=== PATIENT | male | born 2000 | race Caucasian/White ===

== ENCOUNTER 2022-04-05 19:29 | Inpatient (IN) | payer MEDICAID, OTHER ==
[~2022-04-05] VITALS: Ht 185.4 cm; Wt 104.6 kg
[2022-04-05] MEDS ORDERED: ZOLPIDEM TARTRATE 10 MG TABLET PO PRN (22:45)
[2022-04-05] MEDS ORDERED: HALOPERIDOL 5 MG TABLET PO PRN (22:45)
[2022-04-05 22:53] LABS: BASOPHILS % (AUTO) 1.1 % (0.0-2.0); EOSINOPHILS % (AUTO) 3.2 % (1.0-6.0); HEMATOCRIT 46.6 % (41-53); HEMOGLOBIN 15.6 g/dL (13.5-17.5); LYMPHOCYTES # (AUTO) 3.4 K/uL (1.0-4.8); LYMPHOCYTES % (AUTO) 42.9 % (22.0-44.0); MEAN CORPUSCULAR HGB CONC 33.5 G/dL (31.0-37.0); MEAN CORPUSCULAR VOLUME 84 fL (80-100); MONOCYTES # (AUTO) 0.5 K/uL (0.1-1.0); MONOCYTES % (AUTO) 6.1 % (2.0-9.0); NEUTROPHILS # (AUTO) 3.7 K/uL (1.8-7.7); NEUTROPHILS % (AUTO) 46.7 % (40.0-70.0); PLATELET COUNT (AUTO) 216 K/uL (150-450); RED BLOOD CELL COUNT(AUTO) 5.57 MIL/uL (4.50-5.90); RED CELL DISTRIBUTION WIDTH 15.5 % (11.5-14.5)
[2022-04-05 23:00] LABS: ANION GAP 9 mmol/L (8-16); CALCIUM, TOTAL 9.7 mg/dL (8.8-10.5); CARBON DIOXIDE 28 mmol/L (22-29); CHLORIDE 105 mmol/L (98-107); CREATININE 0.67 mg/dL (0.60-1.30); GLOMERULAR FILTR. RATE CALC > 60 mL/min (>60); GLUCOSE,RANDOM 113 mg/dL (70-110); POTASSIUM 3.5 mmol/L (3.5-5.1); SODIUM SERUM 142 mmol/L (136-145); UREA NITROGEN, BLOOD 6 mg/dL (7-18)
[2022-04-05 23:06] LABS: ALANINE AMINOTRANSFERASE 38 U/L (12-78); ALBUMIN 3.9 g/dL (3.4-5.0); ALKALINE PHOSPHATASE 64 U/L (46-116); ASPARTATE AMINOTRANSFERASE 23 U/L (15-37); BILIRUBIN,TOTAL 0.5 mg/dL (0.1-1.0); TOTAL PROTEIN, SERUM 7.3 g/dL (6.4-8.2)
[2022-04-05 23:21] LABS: COVID AG,FIA SOURCE NASAL SWAB
[2022-04-06] MEDS ORDERED: LOPERAMIDE HCL 2 MG CAPSULE PO PRN (06:45)
[2022-04-06] MEDS ORDERED: MAG HYDROX/AL HYDROX/SIMETH ES 30 ML SUSPENSION UDCUP PO PRN (06:45)
[2022-04-06] MEDS ORDERED: MAGNESIUM HYDROXIDE SUSPENSION 30 ML UDCUP PO PRN (06:45)
[2022-04-06] MEDS ORDERED: PETROLATUM,WHITE 28 GM JELLY TP PRN (06:45)
[2022-04-06] MEDS ORDERED: ALBUTEROL SULFATE HFA 90 MCG/PUFF 8 GM INHALER IH PRN (06:45)
[2022-04-06] MEDS ORDERED: DOCUSATE SODIUM 100 MG CAPSULE PO PRN (06:45)
[2022-04-06] MEDS ORDERED: ONDANSETRON HCL 4 MG TABLET PO PRN (06:45)
[2022-04-06] MEDS ORDERED: GuaiFENesin/D-METHORPHAN [SUGAR-FREE] 200-20MG/10 ML SYRUP UDCUP PO PRN (06:45)
[2022-04-06] MEDS ORDERED: ACETAMINOPHEN 325 MG TABLET PO PRN (06:45)
[2022-04-06] MEDS ORDERED: IBUPROFEN 400 MG TABLET PO PRN (06:45)
[2022-04-06] MEDS ORDERED: CloNIDine HCL 0.1 MG TABLET PO PRN (06:45)
[2022-04-06] MEDS ORDERED: NICOTINE 14 MG/24 HOUR PATCH TD PRN (06:45)
[2022-04-06 08:05] VITALS: BP 128/74
[2022-04-06 20:01] VITALS: BP 142/75
[2022-04-06] MEDS: DIVALPROEX SODIUM 500 MG DR TABLET PO SCH (20:04)
[2022-04-06] MEDS: RisperiDONE 1 MG TABLET PO SCH (20:04)
[2022-04-07 08:00] VITALS: BP 119/66
[2022-04-07] MEDS: DIVALPROEX SODIUM 500 MG DR TABLET PO SCH ×2 (08:19→20:18)
[2022-04-07] MEDS: ESCITALOPRAM OXALATE 10 MG TABLET PO SCH (08:19)
[2022-04-07] MEDS: RisperiDONE 1 MG TABLET PO SCH ×2 (08:19→20:18)
[2022-04-07] MEDS: LORazepam 2 MG TABLET PO PRN (08:19)
[2022-04-07 20:03] VITALS: BP 116/78
[2022-04-08] MEDS: TESTOSTERONE 1% 50 MG-5 GM GEL PACKET TD SCH (12:18)
[2022-04-08] MEDS: RisperiDONE 1 MG TABLET PO SCH ×2 (12:18→20:30)
[2022-04-08] MEDS: DIVALPROEX SODIUM 500 MG DR TABLET PO SCH ×2 (12:18→20:30)
[2022-04-08] MEDS: ESCITALOPRAM OXALATE 10 MG TABLET PO SCH (12:18)
[2022-04-08 20:25] VITALS: BP 126/78
[2022-04-09 08:08] VITALS: BP 116/60
[2022-04-09] MEDS: ESCITALOPRAM OXALATE 10 MG TABLET PO SCH (08:45)
[2022-04-09] MEDS: RisperiDONE 1 MG TABLET PO SCH ×2 (08:45→20:29)
[2022-04-09] MEDS: DIVALPROEX SODIUM 500 MG DR TABLET PO SCH ×2 (08:45→20:29)
[2022-04-09] MEDS: TESTOSTERONE 1% 50 MG-5 GM GEL PACKET TD SCH (08:47)
[2022-04-09] MEDS: LORazepam 2 MG TABLET PO PRN (08:51)
[2022-04-09 20:05] VITALS: BP 115/64
[2022-04-10 08:32] VITALS: BP 138/80
[2022-04-10] MEDS: ESCITALOPRAM OXALATE 10 MG TABLET PO SCH (09:53)
[2022-04-10] MEDS: RisperiDONE 1 MG TABLET PO SCH ×2 (09:53→20:11)
[2022-04-10] MEDS: DIVALPROEX SODIUM 500 MG DR TABLET PO SCH ×2 (09:53→20:11)
[2022-04-10] MEDS: TESTOSTERONE 1% 50 MG-5 GM GEL PACKET TD SCH (09:54)
[2022-04-10 20:07] VITALS: BP 131/69
[2022-04-11 08:10] VITALS: BP 118/66
[2022-04-11] MEDS: DIVALPROEX SODIUM 500 MG DR TABLET PO SCH ×2 (09:00→20:05)
[2022-04-11] MEDS: ESCITALOPRAM OXALATE 10 MG TABLET PO SCH (09:00)
[2022-04-11] MEDS: RisperiDONE 1 MG TABLET PO SCH ×2 (09:01→20:05)
[2022-04-11] MEDS: TESTOSTERONE 1% 50 MG-5 GM GEL PACKET TD SCH (09:01)
[2022-04-11 20:44] VITALS: BP 133/56
[2022-04-12 08:17] VITALS: BP 139/95
[2022-04-12] MEDS: RisperiDONE 1 MG TABLET PO SCH ×2 (09:03→20:09)
[2022-04-12] MEDS: ESCITALOPRAM OXALATE 10 MG TABLET PO SCH (09:03)
[2022-04-12] MEDS: DIVALPROEX SODIUM 500 MG DR TABLET PO SCH ×2 (09:03→20:09)
[2022-04-12] MEDS: TESTOSTERONE 1% 50 MG-5 GM GEL PACKET TD SCH (09:04)
[2022-04-12] MEDS ORDERED: RISP1TAB98 PO (09:32)
[2022-04-12] MEDS ORDERED: ESCI10 PO (09:32)
[2022-04-12] MEDS ORDERED: DIVA-112 PO (09:32)
[2022-04-12 21:12] VITALS: BP 129/87
[2022-04-13] MEDS: TESTOSTERONE 1% 50 MG-5 GM GEL PACKET TD SCH (08:16)
[2022-04-13] MEDS: ESCITALOPRAM OXALATE 10 MG TABLET PO SCH (08:16)
[2022-04-13] MEDS: DIVALPROEX SODIUM 500 MG DR TABLET PO SCH ×2 (08:16→20:05)
[2022-04-13] MEDS: RisperiDONE 1 MG TABLET PO SCH ×2 (08:16→20:05)
[2022-04-13 08:38] VITALS: BP 120/80
[2022-04-13 20:02] VITALS: BP 127/60
[2022-04-14] MEDS: TESTOSTERONE 1% 50 MG-5 GM GEL PACKET TD SCH (08:07)
[2022-04-14] MEDS: RisperiDONE 1 MG TABLET PO SCH ×2 (08:08→20:04)
[2022-04-14] MEDS: DIVALPROEX SODIUM 500 MG DR TABLET PO SCH ×2 (08:08→20:04)
[2022-04-14] MEDS: ESCITALOPRAM OXALATE 10 MG TABLET PO SCH (08:08)
[2022-04-14 08:25] VITALS: BP 116/62
[2022-04-14 20:04] VITALS: BP 136/77
[2022-04-15 08:29] VITALS: BP 118/62
[2022-04-15] MEDS: TESTOSTERONE 1% 50 MG-5 GM GEL PACKET TD SCH (09:08)
[2022-04-15] MEDS: DIVALPROEX SODIUM 500 MG DR TABLET PO SCH ×2 (09:08→20:27)
[2022-04-15] MEDS: ESCITALOPRAM OXALATE 10 MG TABLET PO SCH (09:08)
[2022-04-15] MEDS: RisperiDONE 1 MG TABLET PO SCH ×2 (09:08→20:28)
[2022-04-15 20:15] VITALS: BP 120/67
[2022-04-16 08:33] VITALS: BP 129/67
[2022-04-16] MEDS: TESTOSTERONE 1% 50 MG-5 GM GEL PACKET TD SCH (08:44)
[2022-04-16] MEDS: ESCITALOPRAM OXALATE 10 MG TABLET PO SCH (08:45)
[2022-04-16] MEDS: RisperiDONE 1 MG TABLET PO SCH (08:45)
[2022-04-16] MEDS: DIVALPROEX SODIUM 500 MG DR TABLET PO SCH (08:45)
== END 2022-04-16 13:05 | disposition home or self-care (01) | DRG 750 ==
LOC: EMS 19:29 → B2S 04-06 01:13 → UNDOADMIN 04-06 01:22 → B2S 04-06 04:15
PROVIDERS: ADMIT Psychiatry & Neurology Psychiatry; ATTEND Psychiatry & Neurology Psychiatry
DX: F25.0 Schizoaffective disorder, bipolar type (principal); R45.851 Suicidal ideations; F32.9 Major depressive disorder, single episode, unspecified; Z20.822 Contact with and (suspected) exposure to COVID-19; R73.9 Hyperglycemia, unspecified; R03.0 Elevated blood-pressure reading, without diagnosis of hypertension; Z59.00 Homelessness unspecified; Z79.899 Other long term (current) drug therapy; Z88.8 Allergy status to other drugs, medicaments and biological substances
CPT/HCPCS: 80053; 80164; 84402; 85025; 99285; G0480